=== PATIENT | female | born 1995 | race Caucasian/White ===

== ENCOUNTER → 2017-09-08 | Day surgery (SDC) | payer BC ==
[~2017-09-08] MED LIST: Lactated Ringers 1,000 ML IV SCH; Propofol 200 MG/20 ML SDV IV ONE
--- NOTE | 2017-09-11 08:57 | OR ---
DATE OF OPERATION: 09/08/2017 PREOPERATIVE DIAGNOSIS: CHRONIC DIARRHEA. POSTOPERATIVE DIAGNOSIS: CHRONIC DIARRHEA. SURGEON: Kun Candelaria MD PROCEDURE: FULL-LENGTH COLONOSCOPY WITH COLON BIOPSIES X8. ANESTHESIA: CAN DRYER. COMPLICATIONS: None. SPECIMEN: Colon biopsies x8 from terminal ileum to rectal vault. FINDINGS: 1. Full-length colonoscopy. 2. Very mild left-sided colitis, mid sigmoid colon. RECOMMENDATIONS: Follow up pending path reports. INDICATIONS: Ms. Kamara has been having some on and off skin issues with diarrhea and left-sided abdominal pain. CT scan showed potential colitis on the left side with some bowel thickening. We elected to proceed with colonoscopy. DESCRIPTION OF PROCEDURE: The patient was prepped and draped, placed in the left lateral decubitus position. A lubricated Olympus colonoscope was inserted and easily advanced to the cecum. We were able to directly visualize the ileocecal valve and appendiceal orifice. The scope was easily intubated into the terminal ileum where no gross abnormalities were seen. Biopsy of that was taken. Upon withdrawal, random biopsies done throughout the right transverse and descending colons were accomplished x4. In the sigmoid colon, the patient did have a very focal area of some very mild nonspecific colitis for about a 10 cm segment. Two biopsies were taken. We did random biopsy in the rectosigmoid area and another one in the rectal vault. Retroflexion of the scope in the rectum showed no anal lesions. Throughout the colon, there were no polyps, vascular abnormalities, or signs of bleeding. Air was suctioned. Scope was removed without complication. EDUARDA/JUNO /[id number]
== END ==
LOC: CC.SDS 11:35
PROVIDERS: ATTEND Family Medicine
DX: K52.9 Noninfective gastroenteritis and colitis, unspecified (principal); K57.30 Diverticulosis of large intestine without perforation or abscess without bleeding; J45.909 Unspecified asthma, uncomplicated; Z98.890 Other specified postprocedural states
CPT/HCPCS: 36415; 84703; J2704; J7120